=== PATIENT | female | born 1970 | race Two or more races ===

== ENCOUNTER 2017-12-28 12:32 | Inpatient (IN) | payer MEDICAID, OTHER ==
[~2017-12-28] VITALS: Ht 154.9 cm; Wt 64.9 kg
[2017-12-28] VITALS (7 sets, daily range): BP systolic 102–124; BP diastolic 55–69
[2017-12-28 14:32] LABS: Basophils # (auto) 0.1 uL; Eosinophils # (auto) 0.1 uL; Neutrophils # (auto) 4.7 uL; Neutrophils % (auto) 56.9 % (37.0-80.0); Nucleated Red Blood Cells % 0.1 %; Red Cell Distribution Width 19.2 % (11.8-14.3); White Blood Cell 8.2 10^3/uL (4.4-10.8)
[2017-12-28 14:34] LABS: Eosinophils % (auto) 1.1 % (0.0-7.0); Hematocrit 23.8 % (36.0-46.0); Lymphocytes % (auto) 35.8 % (10.0-50.0); Mean Corpuscular Hemoglobin 17.9 pg (28.0-32.0); Mean Corpuscular Hgb Conc. 29.5 g/dL (32.0-36.0); Mean Corpuscular Volume 60.4 fL (80.0-100.0); Monocytes # (auto) 0.4 uL; Monocytes % (auto) 5.2 % (0.0-12.0); Platelet Count (auto) 468 10^3/uL (140-450); Red Blood Cells 3.94 10^6/uL (4.0-5.20)
[2017-12-28 14:50] LABS: INR 0.94 (0.9-1.15); Partial Thromboplastin Time 23.8 sec (23.78-33.04); Prothrombin Time 10.1 sec (9.27-12.13)
[2017-12-28 14:52] LABS: Albumin 3.5 g/dL (3.4-5.0); BUN/Creatinine Ratio 20.8; Bilirubin, Total 0.2 mg/dL (0.2-1.0); Calcium 8.7 mg/dL (8.5-10.1); Potassium 3.7 mmol/L (3.5-5.1); Total Protein 8.2 g/dL (6.4-8.2)
[2017-12-28] MEDS ORDERED: PANTOPRAZOLE 40 MG TAB PO ONE (15:30)
[2017-12-28 15:47] LABS: % Iron Saturation 2.3 % (15-50)
[2017-12-28] MEDS: FERROUS SULFATE 325 MG TAB PO SCH (19:30)
[2017-12-29] VITALS (7 sets, daily range): BP systolic 85–124; BP diastolic 50–75
[2017-12-29 06:41] LABS: Basophils # (auto) 0.1 uL; Basophils % (auto) 0.6 % (0.0-2.0); Eosinophils # (auto) 0.1 uL; Hemoglobin 9.6 g/dL (12.2-16.2); Lymphocytes # (auto) 2.9 uL; Lymphocytes % (auto) 33.4 % (10.0-50.0); Mean Corpuscular Hemoglobin 20.9 pg (28.0-32.0); Mean Corpuscular Hgb Conc. 31.1 g/dL (32.0-36.0); Mean Corpuscular Volume 67.1 fL (80.0-100.0); Monocytes # (auto) 0.6 uL; Monocytes % (auto) 6.3 % (0.0-12.0); Neutrophils # (auto) 5.1 uL; Neutrophils % (auto) 58.7 % (37.0-80.0); Nucleated Red Blood Cells % 0.1 %; Platelet Count (auto) 399 10^3/uL (140-450); Red Blood Cells 4.61 10^6/uL (4.0-5.20); White Blood Cell 8.7 10^3/uL (4.4-10.8)
[2017-12-29 06:42] LABS: Red Cell Distribution Width 27.3 % (11.8-14.3)
[2017-12-29] MEDS: FERROUS SULFATE 325 MG TAB PO SCH (08:42)
[2017-12-29 10:00] LABS: Urine Bacteria FEW /hpf (None Seen); Urine Blood Negative /uL (Negative); Urine Mucus FEW (None Seen); Urine Specific Gravity 1.018 (1.001-1.035); Urine WBC 8 /hpf (0 - 5)
[2017-12-29] MEDS ORDERED: PANTOPRAZOLE 40 MG TAB PO SCH (10:00)
== END 2017-12-29 16:30 | disposition home or self-care (01) | DRG 532 ==
LOC: ER 12:41 → OVERFLOW 12:42 → WEST WING 17:47
PROVIDERS: ADMIT Internal Medicine; ATTEND Internal Medicine
PROC: 30233N1 Transfusion of Nonautologous Red Blood Cells into Peripheral Vein, Percutaneous Approach (ICD-10-PCS; principal; 2017-12-28)
DX: N94.6 Dysmenorrhea, unspecified (principal); E66.01 Morbid (severe) obesity due to excess calories; I10 Essential (primary) hypertension; E11.9 Type 2 diabetes mellitus without complications; D50.0 Iron deficiency anemia secondary to blood loss (chronic); N88.8 Other specified noninflammatory disorders of cervix uteri; N92.0 Excessive and frequent menstruation with regular cycle; Z79.84 Long term (current) use of oral hypoglycemic drugs; Z68.27 Body mass index [BMI] 27.0-27.9, adult
CPT/HCPCS: 36415; 36430; 76856; 80053; 81001; 82270; 83036; 83540; 83550; 84443; 85025; 85610; 85730; 86850; 86900; 86901; 86920; 93005; 94761; 99291

== ENCOUNTER 2022-08-21 10:42 | Emergency (ER) | payer MEDICAID ==
[~2022-08-21] VITALS: Ht 160 cm; Wt 73.0 kg
[2022-08-21] MEDS ORDERED: ONDANSETRON HCL 4 MG/2 ML VIAL IV ONE (11:15)
[2022-08-21] MEDS ORDERED: PANTOPRAZOLE 40 MG/10 ML VIAL INJ IV ONE (11:15)
[2022-08-21] MEDS ORDERED: SODIUM CHLORIDE 0.9% 1,000 ML IVB ONE (11:15)
[2022-08-21] MEDS ORDERED: MORPHINE SULFATE 4 MG/ML SYR/VIAL IV ONE (11:15)
[2022-08-21 11:46] LABS: Basophils # (auto) 0.1 10 ^3/uL (0-0.2); Eosinophils # (auto) 0.1 10 ^3/uL (0-0.8); Hemoglobin 9.2 g/dL (12.2-16.2); Neutrophils # (auto) 2.5 10 ^3/uL (1.6-8.6)
[2022-08-21 11:48] LABS: Basophils % (auto) 1.3 % (0.0-2.0); Eosinophils % (auto) 1.4 % (0.0-7.0); Hematocrit 29.7 % (36.0-46.0); Lymphocytes # (auto) 2.9 10 ^3/uL (0.4-5.4); Lymphocytes % (auto) 49.9 % (10.0-50.0); Mean Corpuscular Hemoglobin 20.7 pg (28.0-32.0); Mean Corpuscular Volume 66.9 fL (80.0-100.0); Monocytes # (auto) 0.3 10 ^3/uL (0-1.3); Monocytes % (auto) 4.6 % (0.0-12.0); Neutrophils % (auto) 42.8 % (37.0-80.0); Nucleated Red Blood Cells % 0.1 %; Red Blood Cells 4.44 10^6/uL (4.0-5.20); Red Cell Distribution Width 18.8 % (11.8-14.3); White Blood Cell 5.9 10^3/uL (4.4-10.8)
[2022-08-21 11:59] LABS: Albumin 3.8 g/dL (3.4-5.0); BUN/Creatinine Ratio 19.3; Bilirubin, Total 0.3 mg/dL (0.2-1.0); Calcium 8.7 mg/dL (8.5-10.1); Potassium 3.7 mmol/L (3.5-5.1); Total Protein 8.1 g/dL (6.4-8.2)
[2022-08-21] MEDS ORDERED: PANT40TA2 PO (15:24)
[2022-08-21] MEDS ORDERED: ONDA-144 PO (15:24)
[2022-08-21 15:47] VITALS: BP 152/65
== END 2022-08-21 15:48 | disposition home or self-care (01) ==
LOC: ER 10:42
DX: K29.00 Acute gastritis without bleeding (principal); E11.9 Type 2 diabetes mellitus without complications; E78.5 Hyperlipidemia, unspecified; I10 Essential (primary) hypertension; Z98.890 Other specified postprocedural states
CPT/HCPCS: 36415; 74176; 76705; 80053; 83690; 85025; 96360; 99284; J7030